=== PATIENT | male | born 1975 | race Two or more races ===

== ENCOUNTER 2018-03-01 21:05 | Emergency (ER) | payer OTHER ==
[~2018-03-01] VITALS: Ht 175.3 cm; Wt 90.7 kg
--- NOTE | 2018-03-01 21:10 | NUR ---
[facility] AND [employer] FOR PYCHE EVALUATION. PATIENT REPORTED BEING SUICIDAL WITH PLAN TO RUN INTO TRAFFIC. 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 PATIENT IS AWAKE AND ALERT. APPEARS IN NO DISTRESS. RESPIPRATION EVEN AND UNLABORED. SKIN IS WARM TO TOUCH AND NON DIAPHORETIC. PT IS AFEBRILE. VSS
[2018-03-01] MEDS ORDERED: IV NS 0.9% 1,000 ML BAG IV ONE (21:30)
[2018-03-01 22:06] LABS: BASOPHILS # (AUTO) 0.1 /CMM (0.0-0.2); BASOPHILS % (AUTO) 0.8 % (0.0-2.0); EOSINOPHILS % (AUTO) 1.3 % (0.0-6.0); HEMATOCRIT 42 % (39-51); HEMOGLOBIN 14.1 g/dL (13.5-17.5); LYMPHOCYTES # (AUTO) 2.7 /CMM (0.8-4.8); LYMPHOCYTES % (AUTO) 29.1 % (20.0-44.0); MEAN CORPUSCULAR HGB CONC 34 g/dl (31.0-36.0); MEAN CORPUSCULAR VOLUME 88 fL (80-96); MONOCYTES # (AUTO) 0.8 /CMM (0.1-1.30); MONOCYTES % (AUTO) 8.5 % (2.0-12.0); NEUTROPHILS # (AUTO) 5.5 /CMM (1.8-8.9); NEUTROPHILS % (AUTO) 60.3 % (43.0-81.0); PLATELET COUNT (AUTO) 253 /CMM (150-450); RDW COEFFICIENT OF VARIATION 13.9 (11.5-15.0); WHITE BLOOD COUNT (AUTO) 9.2 K/uL (4.3-11.0)
[2018-03-01 22:22] LABS: CALCIUM, SERUM 8.4 mg/dL (8.5-10.1); CREATININE 1.2 mg/dL (0.6-1.3); POTASSIUM 3.3 mmol/L (3.5-5.1)
[2018-03-01 22:24] LABS: ALBUMIN 3.7 g/dL (3.4-5.0); BILIRUBIN,DIRECT 0.1 mg/dL (0.0-0.2); BILIRUBIN,TOTAL 0.3 mg/dL (0.2-1.0); TOTAL PROTEIN, SERUM 8.3 g/dL (6.4-8.2)
[2018-03-01 22:25] LABS: SALICYLATE 1.1 mg/dL (2.8-20.0)
[2018-03-01] MEDS ORDERED: HALOPERIDOL LACTATE INJ 5 MG/ML VIAL ONE (22:40)
[2018-03-01 22:57] LABS: APPEARANCE,URINE CLEAR (CLEAR); BILIRUBIN,URINE NEGATIVE (NEGATIVE); BLOOD, URINE NEGATIVE Ery/uL (NEGATIVE); COLOR,URINE OTHER (YELLOW); KETONES,URINE NEGATIVE (NEGATIVE); LEUKOCYTE ESTERASE ,URINE NEGATIVE (NEGATIVE); NITRITE, URINE NEGATIVE (NEGATIVE); PH,URINE 5.5 (5.0-8.0); PROTEIN,URINE NEGATIVE (NEGATIVE); UGLUCOSE NEGATIVE (NEGATIVE); UROBILINOGEN,URINE 0.2 EU/dL (0.2)
[2018-03-01] MEDS ORDERED: HALOPERIDOL LACTATE INJ 5 MG/ML VIAL IM ONE (23:00)
--- NOTE | 2018-03-02 01:00 | NUR ---
pt sleeping in gurney. no sign of distress noted. vital signs stable. will cont to monitor patient
--- NOTE | 2018-03-02 06:00 | NUR ---
lab at bedside for repeat lab draw.
--- NOTE | 2018-03-02 08:01 | NUR ---
MINNIE DYE CALLED FOR EVAL,LEFT A MESSAGE
--- NOTE | 2018-03-02 08:14 | NUR ---
CALLED [facility] FOR PSYCH EVAL. ETA 60 MINUTES
[2018-03-02 15:50] VITALS: BP 116/78
--- NOTE | 2018-03-02 16:13 | NUR ---
CALLED [facility] AND SPOKE WITH DISPATCHER OSVALDO TO ARRANGE A BLS TRANSPORT TO [facility] WAS GIVEN AN ETA KNIFE [employer]TER [employer]ER MACHINE TIME OF [id number] TRIP #:[id number]
--- NOTE | 2018-03-02 16:18 | NUR ---
REPORT GIVEN TO VITALIY ARREOLA FOR [facility] AT [facility]
== END 2018-03-02 19:21 ==
LOC: ER 21:07
DX: R45.851 Suicidal ideations (principal); G40.909 Epilepsy, unspecified, not intractable, without status epilepticus; F32.9 Major depressive disorder, single episode, unspecified; Z91.14 Patient's other noncompliance with medication regimen
CPT/HCPCS: 36415 ×2; 80048; 80076; 80305; 80329; 81001; 85025; 96360; 96372; 99285; A4606; G0480 ×3; J1630; Z7610; 81000-TC